=== PATIENT | female | born 1990 | race Caucasian/White ===

== ENCOUNTER 2016-09-04 16:28 | Emergency (ER) | payer OTHER ==
[2016-09-04 16:53] VITALS: RESP 18; TEMP 98
--- NOTE | 2016-09-04 17:07 | UCPHY ---
[id number]/08/17 17:04 HPI/ROS: HPI: 26-year-old female presents to urgent care with chief concern left 5th toe bruising, swelling after she dropped a ski boot on it at 4:00 p.m. today. Has been unable to achieve normal weight-bearing it due to significant pain. Denies other injury. Denies numbness, tingling, or weakness of her lower extremity. Use 600 mg ibuprofen with improvement. Review of Systems: Constitutional: no fever Cardiac: No cool, dusky extremity. GI: No nausea or vomiting Musculoskeletal: See HPI Skin: no abrasions or lacerations Neuro: no numbness, tingling, or weakness. no decreased sensation. (Katrin Coker) Physical Exam: Vital signs stable, reviewed by me General: Awake, alert, calm, cooperative. No acute distress. Head: Normalocephalic. Atraumatic. EENT: PERRLA. EOMI. CV: DP/PT Distal pulses 2+. Brisk cap refill all extremities. GI: Deferred Neuro: Alert. Oriented x 3. Sensation intact all extremities. Skin: Skin warm, dry, intact. Ecchymosis left 5th toe with moderate swelling Extremities: No discomfort to palpation of the left hip, knee, leg, ankle. Full ROM. Left 5th toe with moderate ecchymosis and swelling of the proximal and distal phalanx. No pain at the 5th MTPJ (Katrin Coker) Constitutional: Initial Vital Signs Temperature (C) 36.6 C 09/04/16 16:50 Heart Rate 75 09/04/16 16:50 Respiratory Rate 18 09/04/16 16:50 Blood Pressure 122/62 H 09/04/16 16:50 O2 Sat (%) 96 09/04/16 16:50 O2 Delivery Mode Room Air Allergies/Adverse Reactions: Cephalosporins Allergy (Verified 09/04/16 16:50) Home Medications: Medication Instructions Recorded Nuvoring 09/04/16 Medical Decision Making - Diagnostics Imaging: X-ray shows distal phalanx fracture. Final x-ray report pending at time this dictation (Katrin Coker) ED Course/Re-evaluation: Toes yvrose-taped. Patient given a postop shoe and crutches. Neurovascular status intact after application of postop shoe. Given her x-ray to take to follow up with primary care. (Katrin Coker) Differential Diagnosis: Contusion, fracture, dislocation (Katrin Coker) Other Provider: The patient was evaluated and managed by the nurse practitioner, Katrin Coker. My co-signature indicates that I have reviewed this chart and I agree with the findings and plan of care as documented. I am the secondary supervising physician. (Brittnee Armenta) - Data Points Laboratory Results: 09/04/16 16:55 Urine Test NEGATIVE Departure - Departure Disposition: Home, Routine, Self-Care Clinical Impression: Toe fracture, left Condition: Good Instructions: Toe Fracture (ED) Additional Instructions: Plan: You have a toe fracture (broken toe) You may use 600 mg of ibuprofen every 6 hours for fever, inflammation, or pain. Always take ibuprofen with food and stay well hydrated while taking. Do not exceed the maximum allowable dose in a 24 hour period which is 2400 mg. ice every 1-2 hours for 20 minutes for the the next 2-3 days Use postop shoe and crutches for weight-bearing as tolerated, if it hurts, do not do it Follow up with her primary care provider by Monday or Monday--When you call to schedule appointment, please let the office know you are an "ER follow up" appointment", take your x-ray when you go Referrals: Shanta Bernal MD [Primary Care Provider] - As per Instructions - PQRS PQRS Measurement: Not applicable (Katrin Coker)
--- NOTE | 2016-09-04 17:31 | DX ---
Left Foot, Three Views dated September 04, 2016 Indication: Left fourth and fifth toe pain. Crush injury. Findings: An acute nondisplaced fracture traverses the distal phalanx of the fifth toe. No involveme nt of the interphalangeal joint. No other fractures. Joint spaces are well preserved. Impression: Acute nondisplaced fracture distal phalanx fifth toe.
[2016-09-04 17:44] VITALS: BP 120/57; PULSE 74; O2SAT 97
== END 2016-09-04 17:43 | disposition home or self-care (01) ==
LOC: CED 16:28
DX: S92.535A Nondisplaced fracture of distal phalanx of left lesser toe(s), initial encounter for closed fracture (principal); W20.8XXA Other cause of strike by thrown, projected or falling object, initial encounter
CPT/HCPCS: 73630-PO; 81025-PO; 99214-PO; G0463-PO